=== PATIENT | male | born 1940 | race Caucasian/White ===

== ENCOUNTER → 2024-12-27 | Outpatient (CLI) | payer MEDICARE ==
[2024-12-27 09:27] LABS: African American GFR (CKD) 64 (>60 ml/min/1.73 sqM); Blood Urea Nitrogen 22 mg/dL (9-20); Non-African American GFR(CKD) 55 (>60 ml/min/1.73 sqM)
--- NOTE | 2024-12-27 11:26 | CT ---
EXAMINATION TYPE: CT urogram wo/w con DATE OF EXAM: 12/27/2024 10:42 AM COMPARISON: None CLINICAL INDICATION: Male, 84 years old with history of R33.0 gross hematuria; PHH, gross hematuria TECHNIQUE: Urogram with imaging of the abdomen and pelvis. Coronal and sagittal reformats were performed. 2D and 3D reconstructions are performed to assist visualization of the urinary tract on a separate workstat ion. Contrast used:100 mL of Isovue 300 without and with IV Contrast, Oral contrast used: None. CT DLP: 3820.1 mGycm, Automated exposure control for dose reduction was used. FINDINGS: LOWER CHEST: No significant findings. Severe coronary artery atherosclerosis. GENITOURINARY: RIGHT KIDNEY AND URETER: nonobstructing 3 mm calculus. Simple appearing right renal cysts. No hydrone phrosis or hydroureter. No renal mass or other lesions. No urothelial lesions: no filling defect, dil ation, stricture or wall thickening. LEFT KIDNEY AND URETER: No calculi. No hydronephrosis or hydroureter. No renal mass or other lesions. No urothelial lesions: no filling defect, dilation, stricture or wall thickening. URINARY BLADDER: Somewhat eccentric right bladder wall thickening up to 9 mm extending approximately 6.2 cm. Underlying malignancy not excluded. No evidence for lymphadenopathy at this time. REPRODUCTIVE: Unremarkable. ABDOMEN LIVER: Unremarkable. GALLBLADDER AND BILE DUCTS: Gallbladder surgically absent. PANCREAS: Unremarkable. SPLEEN: Scattered calcified granulomas in the spleen. ADRENAL GLANDS: Unremarkable. STOMACH AND BOWEL: . No evidence of bowel obstruction. Small hiatal hernia. Scattered colonic diverti cula. Postsurgical changes suggested in the rectosigmoid junction of the colon with suture thought to be identified. The appendix is normal. PERITONEUM: No evidence of pneumoperitoneum, free fluid, or adenopathy. VASCULATURE: No evidence of aortic aneurysm. MUSCULOSKELETAL: No acute osseous abnormalities LYMPH NODES: No gross evidence for lymphadenopathy. SOFT TISSUE/ABDOMINAL WALL: Unremarkable IMPRESSION: 1. Right-sided bladder wall thickening further evaluation with direct visualization recommended to ex clude malignancy. No lymphadenopathy at this time visualized to suggest metastatic disease. 2. Nonobstructing right 3 mm calculus. 3. Severe gerardo colonic diverticulosis. [facility], , 12/27/2024 11:23 AM
== END | disposition home or self-care (01) ==
LOC: RADCTMAIN 08:37
PROVIDERS: ATTEND Urology
DX: N20.0 Calculus of kidney (principal); K57.30 Diverticulosis of large intestine without perforation or abscess without bleeding; N32.89 Other specified disorders of bladder
CPT/HCPCS: 82565; 84520; 74178; 36415; 74400; Q9967

== ENCOUNTER 2025-01-12 08:17 | Day surgery (SDC) | payer MEDICARE ==
[2025-01-10 15:47] VITALS: BMI 26.6
--- NOTE | 2025-01-11 12:16 | P.GSHP ---
History of Present Illness H&P Date: 01/11/25 84-year-old gentleman who was seen for gross hematuria. He underwent a computed tomography scan of abdomen identified a small stone on the right kidney but an 8 typical looking bladder. Endoscopy identified a high-grade appearing sessile bladder tumor on the right bladder wall right bladder neck as well as right anterior wall. He comes for transurethral resection of this tumor - Constitutional Constitutional: Denies chills, Denies fever - EENT Eyes: denies blurred vision, denies pain Ears, nose, mouth and throat: Denies headache, Denies sore throat - Cardiovascular Cardiovascular: Denies chest pain, Denies shortness of breath - Respiratory Respiratory: Denies cough, Denies 7 - Gastrointestinal Gastrointestinal: Denies abdominal pain, Denies diarrhea, Denies nausea, Denies vomiting - Genitourinary (Female) Genitourinary: Denies dysuria, Denies hematuria - Genitourinary (Male) Genitourinary: Denies dysuria, Denies hematuria - Musculoskeletal Musculoskeletal: Denies myalgias - Integumentary Integumentary: Denies pruritus, Denies rash - Neurological Neurological: Denies numbness, Denies weakness - Psychiatric Psychiatric: Denies anxiety, Denies depression - Endocrine Endocrine: Denies fatigue, Denies weight change Past Medical History Past Medical History: COPD, Diabetes Mellitus, GERD/Reflux, Hearing Disorder / Deafness, Prostate Disorder, Pulmonary Embolus (PE) Additional Past Medical History / Comment(s): Low Iron. Skin cancer. Type II diabetic IDDM. Enlarged prostate. Hx of bowel obstruction. History of Any Multi-Drug Resistant Organisms: None Reported Past Surgical History: Hernia Repair, Joint Replacement Additional Past Surgical History / Comment(s): Hernia surgery x2. reconstructive surgery to fingers on rt hand. Lt knee replacement. Had 12inches of colon removed r/bowel obstruction. Colonoscopy Past Anesthesia/Blood Transfusion Reactions: No Reported Reaction Additional Past Anesthesia/Blood Transfusion Reaction / Comment(s): Had blood transfusion-no reaction Smoking Status: Former smoker - Past Family History Father Family Medical History: No Reported History Medications and Allergies Home Medications Medication Instructions Recorded Confirmed Type Acetaminophen [Tylenol Extra 500 mg PO DIRECTED 01/10/25 01/10/25 History Strength] Albuterol Nebulized (Conc) 2.5 mg INHALATION Q12H PRN 01/10/25 01/10/25 History [Ventolin Nebulized (Conc)] Cyanocobalamin [Vitamin B-12] 500 mcg PO QAM 01/10/25 01/10/25 History Ferrous Sulfate [Feosol] 325 mg PO QAM 01/10/25 01/10/25 History INSULIN LISPRO (HumaLOG) [HumaLOG] 12 units SQ TID 01/10/25 01/10/25 History Insulin Glargine (Lantus) [Lantus 50 unit SQ HS 01/10/25 01/10/25 History Vial] Omeprazole [PriLOSEC] 40 mg PO QAM 01/10/25 01/10/25 History Rivaroxaban [Xarelto] 10 mg PO HS 01/10/25 01/10/25 History Simvastatin [Zocor] 40 mg PO HS 01/10/25 01/10/25 History lisinopriL [Zestril] 2.5 mg PO HS 01/10/25 01/10/25 History Allergies Allergy/AdvReac Type Severity Reaction Status Date / Time oats AdvReac Nausea Verified 01/10/25 15:19 Surgical - Exam - General well developed, well nourished, no distress - Eyes normal ocular movement, no icteric - ENT no hearing loss, no congestion - Neck no masses, trachea midline - Respiratory normal respiratory effort, clear to auscultation - Abdomen Abdomen: soft, non tender, no guarding, no rigid, no rebound - Integumentary no rash, no abnormal pigmentation - Neurologic no disoriented, no combative - Psychiatric oriented to time, oriented to person, oriented to place, speech is normal, memory intact Results - Imaging CT scan - abdomen: report reviewed, image reviewed CT scan - pelvis: report reviewed, image reviewed Assessment and Plan Assessment: Impression: Bladder cancer, large Recommendations: Stool a transurethral resection of bladder tumor
[~2025-01-12 08:17] MED LIST: Pre Op ABX Message 1 EACH MISC MISCELLANE ONE
[2025-01-12 08:58] LABS: Glucose,Whole Blood 143 mg/dL (70-110)
[2025-01-12] MEDS: IV FLUID CONTINUATION 1,000 ML IV ONE ×2 (09:01→11:27)
[2025-01-12] MEDS: LACTATED RINGERS 1,000 ML IV SCH (09:02)
[2025-01-12] MEDS: ONDANSETRON 4 MG/2 ML VIAL IVP STA (09:09)
[2025-01-12] MEDS: DEXAMETHASONE SOD PHOSPHATE 4 MG/ML 1 ML VIAL IVP STA (09:09)
[2025-01-12] MEDS ORDERED: PHENYLEPHRINE 10 MG/ML VIAL ONE (09:54)
[2025-01-12] MEDS ORDERED: LIDOCAINE 1% INJ 10MG/ML (20 ML MDV) ONE (09:54)
[2025-01-12] MEDS ORDERED: SUCCINYLCHOLINE CHLORIDE 200 MG/10 ML VIAL IV ONE (09:54)
[2025-01-12] MEDS ORDERED: PROPOFOL 10 MG/ML 20 ML VIAL IV ONE (09:54)
[2025-01-12] MEDS ORDERED: fentaNYL (PF) 50 MCG/ML 2 ML AMP ONE (09:54)
--- NOTE | 2025-01-12 11:10 | P.OP ---
Date of Procedure: 01/12/25 Preoperative Diagnosis: Bladder cancer Postoperative Diagnosis: Same, large (greater than 5 cm) Procedure(s) Performed: Cystoscopy TURBT, large greater than 5 cm Anesthesia: ROBIN Surgeon: Brandon Raines Estimated Blood Loss (ml): 50 Pathology: other (Bladder tumor) Condition: stable Disposition: PACU Indications for Procedure: Patient is 84. He had gross hematuria. Cystoscopy identified a strange looking urothelium there carcinoma in situ or perhaps squamous cell carcinoma of the bladder. Is not a typical sessile or even papillary urothelial carcinoma. No evidence of infection. He comes for resection of this tumor. It encompasses pretty much the right posterior lateral wall of bladder. Description of Procedure: Patient brought to the operating suite. Given a general anesthetic. Placed in lithotomy position with a sterile prep and drape. The urethra is dilated to 30 [place]an with Freddie sounds. Under direct vision the 25 [place]an sheath and direct vision obturator was introduced in the urethra. And urethra is normal. The prostatic urethra shows trilobar obstruction. The bladder wall sheath identifies trabeculation. From 6:00 extending up the right lateral wall almost to 12:00 extending back to the apex of the bladder there is a strange looking erythematous area of the bladder. The Bravo resectoscope and ducting loop I resected from medial to lateral. Checked in the muscle. The bladder of tumor with the [place] evacuator. Cauterized thoroughly the whole bladder base with the dissecting loop and a rollerball. I then drained and vaporized the middle lobe to make it easier to urinate. Into the procedure there is no active bleeding. Coud tip catheter was introduced in the bladder with clear to very light pink urine return. Patient is awakened returned recovery in good condition. Blood loss was less than 50 mL. He tolerated procedure well will be discharged home on recovery. Pending pathology report is further recommendations
[2025-01-12 11:20] VITALS: TEMP 97
[2025-01-12] MEDS: HYDROmorphone 0.5 MG/0.5 ML SYRINGE IVP PRN (11:22)
[2025-01-12 12:03] LABS: Glucose,Whole Blood 157 mg/dL (70-110)
[2025-01-12 13:55] LABS: Glucose,Whole Blood 192 mg/dL (70-110)
[2025-01-12] MEDS: ONDANSETRON ODT 4 MG TAB PO STA (14:07)
[2025-01-12 14:23] VITALS: BP 170/76; PULSE 76; RESP 18
== END 2025-01-12 14:40 | disposition home or self-care (01) ==
LOC: OR 08:17
PROVIDERS: ATTEND Urology
DX: C67.9 Malignant neoplasm of bladder, unspecified (principal); N40.0 Benign prostatic hyperplasia without lower urinary tract symptoms; R31.0 Gross hematuria; J44.9 Chronic obstructive pulmonary disease, unspecified; K21.9 Gastro-esophageal reflux disease without esophagitis; E11.9 Type 2 diabetes mellitus without complications; I10 Essential (primary) hypertension; E78.5 Hyperlipidemia, unspecified; Z85.828 Personal history of other malignant neoplasm of skin; Z96.652 Presence of left artificial knee joint; Z86.711 Personal history of pulmonary embolism; Z87.891 Personal history of nicotine dependence; Z98.890 Other specified postprocedural states; Z79.51 Long term (current) use of inhaled steroids; Z79.4 Long term (current) use of insulin; Z79.899 Other long term (current) drug therapy
CPT/HCPCS: 88307; 52240; J0330; J1100; J2405; J2003; J3010; J2704; J1171; J2371

== ENCOUNTER → 2025-06-08 | Outpatient (CLI) | payer MEDICARE ==
[2025-06-08 15:23] LABS: Basophils # (A) 0.03 X 10*3/uL (0.00-0.10); Basophils % (A) 0.5 %; Eosinophils # (A) 0.06 X 10*3/uL (0.04-0.35); Eosinophils % (A) 1.0 %; HCT 43.2 % (37.2-50.0); HGB 13.8 g/dL (12.0-17.0); Immature Grans, Automated 0.50 %; Lymphocytes # (A) 2.81 X 10*3/uL (0.90-5.00); Lymphocytes % (A) 45.5 %; MCH 29.1 pg (27.0-32.0); MCHC 31.9 g/dL (32.0-37.0); MCV 90.9 FL (80.0-97.0); Monocytes # (A) 0.41 X 10*3/uL (0.20-1.00); Monocytes % (A) 6.6 %; NRBC Per 100 WBC 0 X 10*3/uL (0.00-0.01); Neutrophils # (A) 2.84 X 10*3/uL (1.80-7.70); Neutrophils % (A) 45.9 %; Platelet Count 151 X 10*3/uL (140-440); RBC 4.75 X 10*6/uL (4.10-5.60); RDW 12.0 % (11.5-14.5); WBC 6.18 X 10*3/uL (4.50-10.00)
[2025-06-08 15:45] LABS: Bilirubin,Urine Negative (Negative); Blood,Urine Large (Negative); Color,Urine Yellow (Yellow); Ketones,Urine Trace (Negative); Nitrite,Urine Negative (Negative); PH, Urine 6.0; Specific Gravity,Urine 1.015 (1.001-1.030); Urobilinogen,Urine 1.0 E.U./DL
[2025-06-08 15:51] LABS: Bacteria,Urine None Seen (None Seen)
[2025-06-08 16:10] LABS: Anion Gap 9.90 mmol/L (4.00-12.00); BUN/Creat Ratio 16.00 Ratio (12.00-20.00); Blood Urea Nitrogen 22.4 mg/dL (9.0-27.0); Calcium 9.3 mg/dL (8.7-10.3); Carbon Dioxide 29.1 mmol/L (21.6-31.8); Chloride 102 mmol/L (96-109); Glucose 302 mg/dL (70-110); Potassium 5.6 mmol/L (3.5-5.5); Sodium 141 mmol/L (135-145)
== END | disposition home or self-care (01) ==
LOC: LABWHC1 09:05
PROVIDERS: ATTEND Urology
DX: Z01.812 Encounter for preprocedural laboratory examination (principal)
CPT/HCPCS: 36415; 80048; 81001; 85025; 87086

== ENCOUNTER 2025-06-15 07:57 | Day surgery (SDC) | payer MEDICARE ==
[2025-06-09 11:20] VITALS: BMI 26.9
--- NOTE | 2025-06-12 17:04 | P.GSHP ---
History of Present Illness H&P Date: 06/12/25 84 yo male with a history of bladder cancer[gd3T1,12/2024] had a recent cystoscopy and there were 4 -5 papillary bladder tumors. He comes for turbt with bilateral retrograde pyelograms. - Constitutional Constitutional: Denies chills, Denies fever - EENT Eyes: denies blurred vision, denies pain Ears, nose, mouth and throat: Denies headache, Denies sore throat - Cardiovascular Cardiovascular: Denies chest pain, Denies shortness of breath - Respiratory Respiratory: Denies cough, Denies 7 - Gastrointestinal Gastrointestinal: Denies abdominal pain, Denies diarrhea, Denies nausea, Denies vomiting - Genitourinary (Female) Genitourinary: Denies dysuria, Denies hematuria - Genitourinary (Male) Genitourinary: Denies dysuria, Denies hematuria - Musculoskeletal Musculoskeletal: Denies myalgias - Integumentary Integumentary: Denies pruritus, Denies rash - Neurological Neurological: Denies numbness, Denies weakness - Psychiatric Psychiatric: Denies anxiety, Denies depression - Endocrine Endocrine: Denies fatigue, Denies weight change Past Medical History Past Medical History: Cancer, COPD, Diabetes Mellitus, GERD/Reflux, Hearing Disorder / Deafness, Prostate Disorder, Pulmonary Embolus (PE) Additional Past Medical History / Comment(s): Low Iron. Skin cancer. Type II diabetic IDDM. Enlarged prostate. Hx of bowel obstruction. History of Any Multi-Drug Resistant Organisms: None Reported Past Surgical History: Bladder Surgery, Hernia Repair, Joint Replacement Additional Past Surgical History / Comment(s): Hernia surgery x2. reconstructive surgery to fingers on rt hand. Lt knee replacement. Had 12inches of colon removed r/bowel obstruction. Colonoscopy; Transurethral Resection of Bladder Tumor 12/2024 Past Anesthesia/Blood Transfusion Reactions: No Reported Reaction Additional Past Anesthesia/Blood Transfusion Reaction / Comment(s): Had blood transfusion-no reaction Smoking Status: Former smoker - Past Family History Father Family Medical History: No Reported History Medications and Allergies Home Medications Medication Instructions Recorded Confirmed Type Acetaminophen [Tylenol Extra 500 mg PO DIRECTED 01/10/25 06/09/25 History Strength] Albuterol Nebulized (Conc) 2.5 mg INHALATION Q12H PRN 01/10/25 06/09/25 History [Ventolin Nebulized (Conc)] Cyanocobalamin [Vitamin B-12] 500 mcg PO QAM 01/10/25 06/09/25 History Ferrous Sulfate [Feosol] 65 mg PO QAM 01/10/25 06/09/25 History INSULIN LISPRO (HumaLOG) [HumaLOG] 12 units SQ TID 01/10/25 06/09/25 History Insulin Glargine (Lantus) [Lantus 50 unit SQ HS 01/10/25 06/09/25 History Vial] Omeprazole [PriLOSEC] 40 mg PO QAM 01/10/25 06/09/25 History Rivaroxaban [Xarelto] 10 mg PO HS 01/10/25 06/09/25 History Simvastatin [Zocor] 40 mg PO HS 01/10/25 06/09/25 History lisinopriL [Zestril] 2.5 mg PO HS 01/10/25 06/09/25 History Allergies Allergy/AdvReac Type Severity Reaction Status Date / Time oats AdvReac Nausea Verified 06/09/25 11:12 Assessment and Plan Assessment: Impression: recurrent superficial bladder ca Plan: cysto with turbt and retrograde pyelograms
[2025-06-15] MEDS ORDERED: DEXAMETHASONE SOD PHOSPHATE 4 MG/ML 1 ML VIAL IV ONE (08:27)
[2025-06-15] MEDS: IV FLUID CONTINUATION 1,000 ML IV ONE (08:48)
[2025-06-15 09:02] LABS: Glucose,Whole Blood 182 mg/dL (70-110)
[2025-06-15] MEDS: ONDANSETRON 4 MG/2 ML VIAL IVP ONE (09:18)
[2025-06-15] MEDS: LACTATED RINGERS 1,000 ML IV SCH (09:19)
[2025-06-15] MEDS ORDERED: PHENYLEPHRINE-0.9% NACL SYG 1,000 MCG/10 ML SYRINGE ONE (10:23)
[2025-06-15] MEDS ORDERED: fentaNYL (PF) 50 MCG/ML 2 ML AMP ONE (10:23)
[2025-06-15] MEDS ORDERED: LIDOCAINE 1% INJ 10MG/ML (20 ML MDV) ONE (10:23)
[2025-06-15] MEDS ORDERED: SUCCINYLCHOLINE CHLORIDE 200 MG/10 ML VIAL IV ONE (10:23)
[2025-06-15] MEDS ORDERED: PROPOFOL 10 MG/ML 20 ML VIAL IV ONE (10:23)
[2025-06-15] MEDS: AMPICILLIN 2,000 MG in SODIUM CHLORIDE 0.9% 100 ML IVPB PRN (10:26)
[2025-06-15] MEDS: GENTAMICIN 120 MG in SODIUM CHLORIDE 0.9% 100 ML IVPB PRN (10:26)
[2025-06-15] MEDS: IOPAMIDOL-370 50ML BTL MISCELLANE ONE (10:55)
--- NOTE | 2025-06-15 11:32 | P.OP ---
Date of Procedure: 06/15/25 Preoperative Diagnosis: Bladder cancer Postoperative Diagnosis: Same Procedure(s) Performed: TURBT (medium, 3 cm) Anesthesia: ROBIN Surgeon: Brandon Raines Estimated Blood Loss (ml): 10 Pathology: other (Bladder tumor) Condition: stable Disposition: PACU Indications for Procedure: The patient is 85. He has a history of bladder cancer. He had cystoscopy identified recurrence on the right anterior bladder wall. He comes for resection. Description of Procedure: Brought to the operating suite. Given a general anesthetic. Placed lithotomy position with sterile prep and drape. Under direct vision the 26 [place]onian sheath direct vision obturator introduced in the urethra it was normal prostatic urethra shows an open bladder neck. The bladder wall was trabeculated. There is a papillary and erythematous region approximately 3 cm in the right anterior bladder wall. With Bravo resectoscope this is resected from medial to lateral down to muscle tissue. The bladder is freed from the bladder tumor chips. Bleeding is controlled electrocautery. The resectoscope was removed. An 18 [place] Pina catheter was introduced in the bladder with clear urine return. The patient is awakened and returned to recovery in good condition. He will be discharged upon and follow in the office in 1 week
[2025-06-15 11:40] VITALS: TEMP 97
[2025-06-15 11:47] LABS: Glucose,Whole Blood 156 mg/dL (70-110)
[2025-06-15] MEDS: HYDROmorphone 0.5 MG/0.5 ML SYRINGE IVP PRN (12:04)
[2025-06-15 13:17] VITALS: PULSE 71; RESP 16
[2025-06-15 13:31] VITALS: BP 131/67
== END 2025-06-15 13:55 | disposition home or self-care (01) ==
LOC: OR 07:57
PROVIDERS: ATTEND Urology
DX: C67.9 Malignant neoplasm of bladder, unspecified (principal); J44.9 Chronic obstructive pulmonary disease, unspecified; E11.9 Type 2 diabetes mellitus without complications; K21.9 Gastro-esophageal reflux disease without esophagitis; N40.0 Benign prostatic hyperplasia without lower urinary tract symptoms; H91.90 Unspecified hearing loss, unspecified ear; Z98.890 Other specified postprocedural states; Z85.828 Personal history of other malignant neoplasm of skin; Z86.711 Personal history of pulmonary embolism; Z87.891 Personal history of nicotine dependence; Z96.652 Presence of left artificial knee joint; Z79.4 Long term (current) use of insulin; Z79.51 Long term (current) use of inhaled steroids; Z79.899 Other long term (current) drug therapy
CPT/HCPCS: 84132; 52235; J2405; J1580; J0290; J1171